=== PATIENT | female | born 1945 | race Asian ===

== ENCOUNTER → 2016-10-17 | Outpatient (CLI) | payer MEDICARE ==
[2016-10-17 10:41] LABS: ALANINE AMINOTRANSFERASE 29 U/L (9-52); ALBUMIN 4.4 g/dL (3.5-5.0); ALKALINE PHOSPHATASE 92 U/L (38-126); ANION GAP 16 (5-19); ASPARTATE AMINO TRANSFERASE 23 U/L (14-36); BILIRUBIN,DIRECT 0.2 mg/dL (0.0-0.4); BILIRUBIN,TOTAL 0.7 mg/dL (0.2-1.3); BLOOD UREA NITROGEN 19 mg/dL (7-20); CALCIUM 9.9 mg/dL (8.4-10.2); CARBON DIOXIDE 26 mmol/L (22-30); CHLORIDE 100 mmol/L (98-107); CHOLESTEROL 224.99 mg/dL (0-200); Direct HDL 51 mg/dL (>40); GLUCOSE 112 mg/dL (75-110); POTASSIUM 3.9 mmol/L (3.6-5.0); SODIUM 141.8 mmol/L (137-145); TOTAL PROTEIN 8.4 g/dL (6.3-8.2); TRIGLYCERIDES 278 mg/dL (<150)
[2016-10-17 10:52] LABS: DIRECT LDL 93 mg/dL (<100)
[2016-10-17 10:53] LABS: VLDL CHOLESTEROL 55.6 mg/dL (10-31)
[2016-10-17 11:08] LABS: THYROID STIMULATING HORMONE 0.9 uIU/mL (0.47-4.68)
== END ==
LOC: OD 09:34
PROVIDERS: ATTEND Internal Medicine
DX: E03.9 Hypothyroidism, unspecified (principal); G47.62 Sleep related leg cramps; R25.2 Cramp and spasm; I10 Essential (primary) hypertension; I25.10 Atherosclerotic heart disease of native coronary artery without angina pectoris; Z79.899 Other long term (current) drug therapy
CPT/HCPCS: 36415; 80053; 80061; 83735; 84439; 84443

== ENCOUNTER 2016-11-03 21:52 | Observation (INO) | payer MEDICARE ==
[2016-11-03 22:45] LABS: ABSOLUTE BASOPHILS # (AUTO) 0.1 10^3/uL (0.0-0.2); ABSOLUTE EOSINOPHILS # (AUTO) 0.4 10^3/uL (0.0-0.6); ABSOLUTE LYMPHOCYTES (AUTO) 1.8 10^3/uL (0.5-4.7); ABSOLUTE MONOCYTES (AUTO) 0.6 10^3/uL (0.1-1.4); ABSOLUTE NEUT (AUTO) 4.8 10^3/uL (1.7-8.2); BASOPHILS % (AUTO) 0.9 % (0-2); EOSINOPHILS % (AUTO) 4.7 % (0-6); HEMATOCRIT 36.4 % (36.0-47.0); HEMOGLOBIN 12.6 g/dL (12.0-15.5); HGB HCT DIFFERENCE 1.4; LYMPHOCYTES % (AUTO) 23.1 % (13-45); MEAN CORPUSCULAR HEMOGLOBIN 30.8 pg (27.0-33.4); MEAN CORPUSCULAR HGB CONC 34.7 g/dL (32.0-36.0); MEAN CORPUSCULAR VOLUME 89 fl (80-97); MONOCYTES % (AUTO) 8.1 % (3-13); RED BLOOD COUNT 4.09 10^6/uL (3.72-5.28); RED CELL DISTRIBUTION WIDTH 13.3 % (11.5-14.0); SEGMENTED NEUTROPHILS % (AUTO) 63.2 % (42-78); WHITE BLOOD COUNT 7.6 10^3/uL (4.0-10.5)
[2016-11-03] MEDS ORDERED: ASPIRIN 81 MG TABLET, CHEWABLE PO ONE (22:53)
--- NOTE | 2016-11-03 22:54 | ER Document Report ---
ED Cardiac - General Chief Complaint: Chest Pain Stated Complaint: CHEST PAIN Time Seen by Provider: 11/03/16 22:33 Mode of Arrival: Ambulatory Information source: Patient TRAVEL OUTSIDE OF THE [place] IN LAST 30 DAYS: No - HPI Patient complains to provider of: Chest pain Was the onset of pain: Sudden Chest pain location: Substernal Quality of pain: Pressure Severity now: Mild Severity at worst: Moderate Pain level currently: 2 Chest pain precipitating factors: At Rest Cardiac risk factors: Hypertension Positive cardiac history: Yes Associated symptoms: Diaphoresis, Nausea/vomiting, Shortness of breath Exacerbated by: Denies Relieved by: Nothing Similar symptoms previously: Yes Recently seen / treated by doctor: No Notes: 71-year-old female with a history of coronary artery disease with stent placement in July 2014, as well as hypertension, presents to the emergency room complaining of chest pressure with shortness of breath and diaphoresis starting around 8 PM, also had episode of vomiting, pain starts in the midsternal area, not take any medication prior to driving herself to the emergency room for evaluation, she denies any sick contacts, no cough, cold, congestion - Related Data Allergies/Adverse Reactions: acetaminophen [From Darvocet-N 100] Allergy (Verified 08/02/15 09:28) albuterol [Albuterol] Allergy (Verified 08/02/15 09:28) amoxicillin trihydrate [From Augmentin] Allergy (Verified 08/02/15 09:28) clarithromycin [From Biaxin] Allergy (Verified 08/02/15 09:28) codeine [Codeine] Allergy (Verified 08/02/15 09:28) diazepam [From Valium] Allergy (Verified 08/02/15 09:28) erythromycin base [Erythromycin Base] Allergy (Verified 08/02/15 09:28) ibuprofen [From Motrin] Allergy (Verified 08/02/15 09:28) Iodinated Contrast Media - Oral and [IV Dye, Iodine Containing] Allergy ( Verified 08/02/15:28) meperidine HCl [From Demerol] Allergy (Verified 08/02/15 09:28) methylprednisolone [Methylprednisolone] Allergy (Verified 08/02/15 09:28) morphine [Morphine] Allergy (Verified 08/02/15 09:28) oxycodone [Oxycodone] Allergy (Verified 08/02/15 09:28) Potassium Clavulanate * [From Augmentin] Allergy (Verified 08/02/15 09:28) propoxyphene napsylate [From Darvocet-N 100] Allergy (Verified 08/02/15 09:28) rofecoxib [From Vioxx] Allergy (Verified 08/02/15 09:28) rosuvastatin calcium [From Crestor] Allergy (Verified 08/02/15 09:28) Shellfish * [Shellfish] Allergy (Verified 08/02/15 09:28) theophylline anhydrous [From Yusef-Dur] Allergy (Verified 08/02/15 09:28) tolterodine tartrate [From Detrol] Allergy (Verified 08/02/15 09:28) valdecoxib [From Bextra] Allergy (Verified 08/02/15 09:28) Past Medical History - General Information source: Patient - Social History Smoking Status: Never Smoker Family History: Reviewed & Not Pertinent, Other Patient has suicidal ideation: No Patient has homicidal ideation: No - Past Medical History Cardiac Medical History: Reports: Hx Coronary Artery Disease, Hx Heart Attack, Hx Hypercholesterolemia, Hx Hypertension Denies: Hx Atrial Fibrillation, Hx Congestive Heart Failure, Hx Peripheral Vascular Disease, Hx Pulmonary Embolism, Hx Heart Murmur Pulmonary Medical History: Reports: Hx Asthma, Hx Sleep Apnea Denies: Hx Bronchitis, Hx COPD, Hx Pneumonia, Hx Respiratory Failure, Hx Tuberculosis Neurological Medical History: Denies: Hx Cerebrovascular Accident, Hx Seizures Renal/ Medical History: Denies: Hx End Stage Renal Disease, Hx Kidney Stones, Hx Ovarian Cysts, Hx Peritoneal Dialysis, Hx Pelvic Inflammatory Disease Malignancy Medical History: Denies: Hx Breast Cancer, Hx Cervical Cancer, Hx Lung Cancer, Hx Ovarian Cancer GI Medical History: Denies: Hx Crohn's Disease, Hx Gastroesophageal Reflux Disease, Hx Hiatal Hernia, Hx Irritable Bowel, Hx Liver Failure, Hx Ulcer Musculoskeltal Medical History: Reports Hx Arthritis, Denies Hx Fibromyalgia, Denies Hx Multiple Sclerosis, Denies Hx Muscular Dystrophy Psychiatric Medical History: Denies: Hx Dementia Traumatic Medical History: Denies: Hx Fractures Past Surgical History: Reports: Hx Appendectomy, Hx Cardiac Surgery - Bypass Sx , Hx Cholecystectomy, Hx Coronary Artery Bypass Graft - 2000, Hx Coronary Stent , Hx Hysterectomy. Denies: Hx Bowel Surgery, Hx Section, Hx Colostomy , Hx Gastric Bypass Surgery, Hx Herniorrhaphy, Hx Mastectomy, Hx Pacemaker, Hx Tonsillectomy, Hx Tubal Ligation - Immunizations Immunizations up to date: Yes Hx Diphtheria, Pertussis, Tetanus Vaccination: No Review of Systems - Review of Systems Constitutional: Diaphoresis EENT: No symptoms reported Cardiovascular: See HPI Respiratory: See HPI Gastrointestinal: See HPI Genitourinary: No symptoms reported Female Genitourinary: No symptoms reported Musculoskeletal: No symptoms reported Skin: No symptoms reported Hematologic/Lymphatic: No symptoms reported Neurological/Psychological: No symptoms reported -: Yes All other systems reviewed and negative Physical Exam - Vital signs Vitals: Pulse Ox 96 11/03/16 21:59 Interpretation: Normal - General General appearance: Appears well, Alert - HEENT Head: Normocephalic, Atraumatic Eyes: Normal Pupils: PERRL - Respiratory Respiratory status: No respiratory distress Chest status: Nontender Breath sounds: Normal Chest palpation: Normal - Cardiovascular Rhythm: Regular Heart sounds: Normal auscultation Murmur: No - Abdominal Inspection: Normal Distension: No distension Bowel sounds: Normal Tenderness: Nontender Organomegaly: No organomegaly - Back Back: Normal, Nontender - Extremities General upper extremity: Normal inspection, Nontender, Normal color, Normal ROM , Normal temperature General lower extremity: Normal inspection, Nontender, Normal color, Normal ROM , Normal temperature. No: Karen's sign - Neurological Neuro grossly intact: Yes Cognition: Normal Orientation: AAOx4 [place] Coma Scale Eye Opening: Spontaneous [place] Coma Scale Verbal: Oriented [place] Coma Scale Motor: Obeys Commands Zahra Coma Scale Total: 15 Speech: Normal Motor strength normal: LUE, RUE, LLE, RLE - Psychological Associated symptoms: Normal affect, Normal mood - Skin Skin Temperature: Warm Skin Moisture: Dry Skin Color: Normal Course - Re-evaluation Re-evalutation: 11/04/16 01:33 Patient with known coronary artery disease, history of stent in July 2014, as well as other risk factors for heart disease including age, hypertension, history of angina, normal evaluation in the emergency room except for mild decrease in her potassium which is being replaced, patient was discussed with the hospitalist who agrees to admit for further evaluation and treatment of chest pain, patient is chest pain-free at present time and stable for admission - Vital Signs Vital signs: Temp Pulse Resp BP Pulse Ox 97.5 F 46 L 16 122/73 96 11/03/16 22:08 11/03/16 22:08 11/04/16 00:10 11/04/16 00:10 11/04/16 00:10 - Laboratory Result Diagrams: 11/03/16 22:30 11/03/16 22:30 Laboratory results interpreted by me: 11/03/16 22:30 Potassium 3.2 L BUN 21 H Glucose 118 H - Diagnostic Test Radiology reviewed: Image reviewed, Reports reviewed - EKG Interpretation by [place] EKG shows normal: Sinus rhythm Rate: Bradycardia - Transfer of Care Care transferred to following provider: Dr. Jain Discharge - Discharge Clinical Impression: Chest pain Qualifiers: Chest pain type: unspecified Qualified Code(s): R07.9 - Chest pain, unspecified Condition: Stable Disposition: ADMITTED OBSERVATION Admitting Provider: Hospitalist Unit Admitted: Telemetry
[2016-11-03] MEDS: NITROGLYCERIN 0.4 MG/TAB 25 TAB/BOTTLE SL PRN ×3 (23:02→23:48)
[2016-11-03 23:03] LABS: ALANINE AMINOTRANSFERASE 36 U/L (9-52); ALBUMIN 4.2 g/dL (3.5-5.0); ALKALINE PHOSPHATASE 83 U/L (38-126); ANION GAP 15 (5-19); ASPARTATE AMINO TRANSFERASE 20 U/L (14-36); BILIRUBIN,DIRECT 0.3 mg/dL (0.0-0.4); BILIRUBIN,TOTAL 0.5 mg/dL (0.2-1.3); BLOOD UREA NITROGEN 21 mg/dL (7-20); CALCIUM 9.8 mg/dL (8.4-10.2); CARBON DIOXIDE 26 mmol/L (22-30); CHLORIDE 101 mmol/L (98-107); CREATINE KINASE 46 U/L (30-135); CREATININE RESULT 0.87 mg/dL (0.52-1.25); GLUCOSE 118 mg/dL (75-110); POTASSIUM 3.2 mmol/L (3.6-5.0); SODIUM 141.7 mmol/L (137-145); TOTAL PROTEIN 7.9 g/dL (6.3-8.2)
[2016-11-03 23:13] LABS: CREATINE KINASE MB 0.45 ng/mL (<4.55); TROPONIN I < 0.012 ng/mL
[2016-11-03] MEDS ORDERED: METOCLOPRAMIDE HCL ORAL SOLN 10 MG/10 ML UDCUP PO ONE (23:30)
[2016-11-03] MEDS ORDERED: MAG HYDROX/AL HYDROX/SIMETH SUSP 30 ML UDCUP PO ONE (23:30)
[2016-11-03] MEDS ORDERED: LIDOCAINE 2% VISCOUS SOLN 20 ML UDCUP PO ONE (23:30)
[2016-11-04] MEDS ORDERED: POTASSIUM CHLORIDE 10 MEQ TABLET.SA PO ONE (00:23)
[2016-11-04] MEDS ORDERED: POTASSI CL 20 MEQ/50 ML RIDER 50 ML IV SCH (00:30)
[2016-11-04] MEDS: POTASSI CL 20 MEQ/50 ML RIDER 50 ML IV SCH ×2 (00:48→02:10)
[2016-11-04] MEDS ORDERED: ACETAMINOPHEN 325 MG TABLET PO PRN (02:26)
[2016-11-04] MEDS ORDERED: MAG HYDROX/AL HYDROX/SIMETH SUSP 30 ML UDCUP PO PRN (02:28)
--- NOTE | 2016-11-04 02:52 | PDOC H&P ---
History of Present Illness Admission Date/PCP: 11/04/16 01:29 PCP Ghanshyam Herman [place], [place] Patient complains of: chest pain History of Present Illness: NOA MCKEE is a 71 year old Citizen [place] female, with underlying coronary artery disease, having undergone coronary arterial bypass graft in 2000, along with stent implant 1, last year, at [facility], by Dr. Herman, who presents to the emergency room for evaluation of above complaint. Patient has been discussed with emergency room physician who evaluated the patient. She describes the onset while lying in bed the evening of the of mild to moderate substernal chest pressure that radiated to both shoulders. Associated nausea and vomiting 3, along with sweating, mild numbness and tingling of her fingertips, and shortness of breath. Complete resolution of pain after 3 sublingual nitroglycerin. Currently resting quietly, chest pain-free. Has had prior such episodes of pain. Somewhat distant history of a pulmonary embolus. No recent long trip with prolonged inactivity, or unusual lower extremity swelling or tenderness. She does have chronic intermittent swelling of her left lower extremity, without recent change. No recent change in medications. Compliant with same. No use of tobacco alcohol or illicit drugs. Laboratory results are listed in [facility]. and are reviewed. X-ray summary results are listed below, with full report(s) reviewed. . EKG reviewed. Social history/personal habits: . Lives alone. 2 sons. Retired. Personal habits as noted above. Allergies/adverse reactions are listed in [facility]. and are reviewed. Home medications initially autopopulated into [facility] may not accurately reflect patient's true medications, dosages, and/or frequencies. component lab tech to reconcile medications. Unfortunately, patient not certain of all her medications/dosages/frequencies. REVIEW OF SYSTEMS: Constitutional: No fever or chills. Eyes: Wears glasses. ENT: No swallowing problems or complaints. No hearing difficulty. Pulmonary: See history and present illness. Cardiovascular: See history and present illness. Gastrointestinal: See history and present illness. Skin: No current complaints, including rashes. Hematologic: Easy bruising. Neurologic: See history and present illness. Musculoskeletal:Joint pain from arthritis. Psychiatric: Denies anxiety or depression. Endocrine: No current complaints, including polyuria. Genitourinary: No current complaints, including dysuria. PHYSICAL EXAMINATION: 5 feet 4 inches tall. 74.4 kg. BMI 28.2 kg/m. Blood pressure 123/69. Pulse 52 and regular. 99% saturation on room air. Respirations are 17 and unlabored. Temperature 97.5. Slightly overweight otherwise well-nourished well-developed Citizen [place] female appearing approximately her stated age. Pleasant awake alert and cooperative. No obvious distress other than perhaps mildly anxious. No agitation. Skin is warm and dry. No grossly obvious evidence of rash in areas of skin examined. No subcutaneous nodules palpated. ENT: Hearing grossly normal to normal conversation. Tongue midline on protrusion pink and slightly tacky. Eyes: No scleral icterus. Pupils equal and reactive to light at 4 mm. [place] conjunctivae. Neck is supple and nontender to gentle active range of motion and palpation. Midline trachea. No palpable thyroid nodule mass enlargement or tenderness. Lymphatic: No palpable cervical or clavicular nodes. Neck and lymphatic exams limited by patient body habitus. Psychiatric: Reasonable insight into acute and chronic medical issues. Oriented to time location and why here. Lungs: Auscultation reveals clear and equal breath sounds bilaterally. No use of accessory respiratory muscles. Cardiovascular: Heart regular rate and rhythm, without gallop murmur or rub. No carotid or abdominal aortic bruits. No ankle or pedal edema. Faintly palpable dorsalis pedis pulses. Abdomen:soft slightly distended nontender with positive bowel sounds. Unable to adequately evaluate abdomen for masses or organomegaly due to distention. Compression of both her upper abdomen and sternum does seem to reproduce her previously noted chest discomfort. Extremities: Feet are warm and dry. No calf tenderness to compression. No grossly obvious visual evidence of calf swelling. Gentle manipulation of lower extremities fails to reveal any obvious evidence of injury or instability to knees hips or ankles. Neurologic: Moves upper extremities grossly normally. Patellar reflexes absent. Absent Babinski. Light touch is intact at feet. Dorsiflexion and plantarflexion of feet 5 / 5 and symmetric. Past Medical History Cardiac Medical History: Reports: Coronary Artery Disease, Myocardial Infarction , Hypertension, Pulmonary Embolism Denies: Atrial Fibrillation, Congestive Heart Failure, Hyperlipidema, Peripheral Vascular Disease, Heart Murmur Pulmonary Medical History: Reports: Asthma, Sleep Apnea - Does not wear CPAP. Denies: Bronchitis, Chronic Obstructive Pulmonary Disease (COPD), Pneumonia, Respiratory Failure, Tuberculosis EENT Medical History: Reports: Eyes - Glasses Denies: Ears, Throat Neurological Medical History: Reports: Other - Previous TIA Denies: Hemorrhagic CVA, Ischemic CVA, Seizures Endocrine Medical History: Reports: Hypothyroidism Denies: Diabetes Mellitus Type 1, Diabetes Mellitus Type 2, Hyperthyroidism Renal/ Medical History: Reports: Other - Occasional urinary tract infection. Denies: End Stage Renal Disease Malignancy Medical History: Denies: Breast Cancer, Cervical Cancer, Lung Cancer, Ovarian Cancer GI Medical History: Reports: Gastroesophageal Reflux Disease Denies: Cirrhosis, Crohn's Disease, Hepatitis, Hiatal Hernia, Peptic Ulcer Disease Musculoskeltal Medical History: Reports: Arthritis Denies: Fibromyalgia Skin Medical History: Reports: None Psychiatric Medical History: Denies: Alcohol Dependency, Dementia, Depression, General Anxiety Disorder, Substance Abuse, Tobacco Dependency Hematology: Reports: Other - Easy bruising Infectious Medical History: Denies: Clostridium Difficile, Hepatitis B, Hepatitis C, Methicillin- Resistant Staph Aureus Past Surgical History Past Surgical History: Reports: Appendectomy, Cholecystectomy, Coronary Artery Bypass Graft - 2000, Coronary Stent - 2015, [facility], Dr. Herman, Hysterectomy, Other - Segmental colectomy for colovaginal fistula; benign disease. Social History Information Source: Patient, Emergency Med Personnel, [facility] Records Lives with: Alone Smoking Status: Never Smoker Frequency of Alcohol Use: None Hx Recreational Drug Use: No Drugs: None Hx Prescription Drug Abuse: No - Advance Directive Resuscitation Status: Full Code Surrogate healthcare decision maker:: Her 2 sons Family History Family History: Reviewed & Not Pertinent, Other Parental Family History Reviewed: Yes - Father murdered. Mother of lung problems. Children Family History Reviewed: Yes Sibling(s) Family History Reviewed.: Yes - Diabetic Medication/Allergy Home Medications: Levothyroxine Sodium [Synthroid 0.075 mg Tablet] 0.075 mg PO DAILY 03/24/12 Potassium Chloride [Klor-Con 10 Meq Tablet.sa] 10 meq PO ASDIR PRN 03/24/12 Amlodipine/Valsartan/Hcthiazid [Exforge Hct 10-320-25 mg Tab] 0.5 tab PO DAILY 08/02/15 Aspirin 1 tab PO DAILY 11/04/16 Clopidogrel Bisulfate [Plavix] 1 tab PO DAILY 11/04/16 Diphenhydramine HCl [Benadryl] 25 mg PO Q6 05/21/17 Docusate Sodium [Stool Softener] 1 tab PO DAILY 11/04/16 Allergies/Adverse Reactions: albuterol [Albuterol] Allergy (Verified 08/02/15 09:28) amoxicillin trihydrate [From Augmentin] Allergy (Verified 08/02/15:28) clarithromycin [From Biaxin] Allergy (Verified 08/02/15 09:28) codeine [Codeine] Allergy (Verified 08/02/15 09:28) diazepam [From Valium] Allergy (Verified 08/02/15:28) erythromycin base [Erythromycin Base] Allergy (Verified 08/02/15:) ibuprofen [From Motrin] Allergy (Verified 08/02/15:) Iodinated Contrast Media - Oral and [IV Dye, Iodine Containing] Allergy ( Verified 08/02/15:) meperidine HCl [From Demerol] Allergy (Verified 08/02/15:) methylprednisolone [Methylprednisolone] Allergy (Verified 08/02/15:28) morphine [Morphine] Allergy (Verified 08/02/15:28) oxycodone [Oxycodone] Allergy (Verified 08/02/15:) Potassium Clavulanate * [From Augmentin] Allergy (Verified 08/02/15:28) propoxyphene napsylate [From Darvocet-N 100] Allergy (Verified 08/02/15 09:28) rofecoxib [From Vioxx] Allergy (Verified 08/02/15 09:28) rosuvastatin calcium [From Crestor] Allergy (Verified 08/02/15 09:28) Shellfish * [Shellfish] Allergy (Verified 08/02/15 09:28) theophylline anhydrous [From Yusef-Dur] Allergy (Verified 08/02/15:28) tolterodine tartrate [From Detrol] Allergy (Verified 08/02/15 09:28) valdecoxib [From Bextra] Allergy (Verified 08/02/15 09:28) Physical Exam Vital Signs: Temp Pulse Resp BP Pulse Ox 97.5 F 46 L 15 123/69 96 11/03/16 22:08 11/03/16 22:08 11/04/16 01:30 11/04/16 01:30 11/04/16 01:30 Results Impressions: Chest X-Ray 11/03/16 21:59 IMPRESSION: NO ACUTE RADIOGRAPHIC FINDING IN THE CHEST. Assessment & Plan - Diagnosis (1) Hypokalemia Is this a current diagnosis for this admission?: YesPlan: Has received potassium supplements. Follow-up chemistry. (2) Precordial chest pain Is this a current diagnosis for this admission?: YesPlan: Likely musculoskeletal in origin, but given her known underlying coronary artery disease Patient will be placed in observation bed under chest pain protocol. Patient understands to notify staff should chest pain recur. Serial troponin . Repeat EKG. lipid panel. I have strongly encouraged patient not to get out of bed without notifying staff , to avoid a fall with injury. Knee high SCDs for DVT prophylaxis, along with subcu Lovenox. Impression and plans were discussed with patient, who concurs . Time spent in evaluation and management of patient: 65 minutes. (3) History of pulmonary embolism Is this a current diagnosis for this admission?: YesPlan: D-dimer (4) Stented coronary artery Is this a current diagnosis for this admission?: Yes (5) HTN (hypertension) Qualifiers: Hypertension type: essential hypertension Qualified Code(s): I10 - Essential (primary) hypertension Is this a current diagnosis for this admission?: YesPlan: Resume home medications as appropriate once these have been determined and reviewed. (6) Hypothyroid Qualifiers: Hypothyroidism type: unspecified Qualified Code(s): E03.9 - Hypothyroidism, unspecified Is this a current diagnosis for this admission?: YesPlan: TSH. Resume home medications as appropriate once these have been determined and reviewed.
[2016-11-04 05:00] LABS: CHOLESTEROL 190.18 mg/dL (0-200); Direct HDL 49 mg/dL (>40); TRIGLYCERIDES 244 mg/dL (<150)
[2016-11-04 05:11] LABS: DIRECT LDL 83 mg/dL (<100)
[2016-11-04 05:14] LABS: VLDL CHOLESTEROL 48.8 mg/dL (10-31)
[2016-11-04] MEDS ORDERED: DOCUSATE SODIUM 100 MG CAPSULE PO SCH (10:00)
[2016-11-04] MEDS ORDERED: LEVOTHYROXINE SODIUM 0.075 MG TABLET PO SCH (10:00)
[2016-11-04] MEDS ORDERED: ENOXAPARIN SODIUM INJ 40 MG/0.4 ML DISP.SYRIN SUBCUT SCH (10:00)
[2016-11-04 10:09] VITALS: BP 131/61
[2016-11-04 11:07] LABS: ANION GAP 12 (5-19); BLOOD UREA NITROGEN 17 mg/dL (7-20); CALCIUM 9.5 mg/dL (8.4-10.2); CARBON DIOXIDE 28 mmol/L (22-30); CHLORIDE 101 mmol/L (98-107); GLUCOSE 113 mg/dL (75-110); SODIUM 140.5 mmol/L (137-145)
[2016-11-04] MEDS ORDERED: CLOPIDOGREL BISULFATE 75 MG TABLET PO ONE (12:00)
[2016-11-04] MEDS ORDERED: ASPIRIN 81 MG TABLET, CHEWABLE PO ONE (12:00)
--- NOTE | 2016-11-04 14:11 | PDOC DISCHARGE SUMMARY ---
General - Admit/Disc Date/PCP Admission Date/Primary Care Provider: 11/04/16 02:28 Discharge Date: 11/04/16 - Discharge Diagnosis (1) Chest pain Is this a current diagnosis for this admission?: YesSummary: Ruled out for acute coronary syndrome, most likely GI in origin. Will follow up with Dr Hayward. (2) History of pulmonary embolism Is this a current diagnosis for this admission?: YesSummary: VQ scan is negative (3) Stented coronary artery Is this a current diagnosis for this admission?: YesSummary: Continue plavix and aspirin. Fasting lipids were unremarkable (4) HTN (hypertension) Is this a current diagnosis for this admission?: YesSummary: Patient is normotensive at the present time (5) Hypokalemia Is this a current diagnosis for this admission?: YesSummary: Repleted - Additional Information Resuscitation Status: Full Code Discharge Activity: Activity As Tolerated Home Medications: Levothyroxine Sodium [Synthroid 0.075 mg Tablet] 0.075 mg PO DAILY 03/24/12 Potassium Chloride [Klor-Con 10 Meq Tablet.sa] 10 meq PO ASDIR PRN 03/24/12 Amlodipine/Valsartan/Hcthiazid [Exforge Hct 10-320-25 mg Tab] 0.5 tab PO DAILY 08/02/15 Acetaminophen [Tylenol 325 mg Tablet] 650 mg PO Q4HP PRN tablet 11/04/16 Aspirin 1 tab PO DAILY 11/04/16 Clopidogrel Bisulfate [Plavix] 1 tab PO DAILY 11/04/16 Diphenhydramine HCl [Benadryl] 25 mg PO Q6 11/04/16 Docusate Sodium [Stool Softener] 1 tab PO DAILY 11/04/16 Nitroglycerin [Nitrostat] 0.4 mg SL Q5MP PRN 11/04/16 History of Present Illness Patient complains of: Midsternal chest pain and nausea and vomiting History of Present Illness: NOA MCKEE is a 71 year old [place] female, with underlying coronary artery disease, having undergone coronary arterial bypass graft in 2000, along with stent implant 1, last year, at [facility], by Dr. Herman, who presents to the emergency room for evaluation of above complaint. Patient has been discussed with emergency room physician who evaluated the patient. She describes the onset while lying in bed the evening of the of mild to moderate substernal chest pressure that radiated to both shoulders. Associated nausea and vomiting 3, along with sweating, mild numbness and tingling of her fingertips, and shortness of breath. Complete resolution of pain after 3 sublingual nitroglycerin. Currently resting quietly, chest pain-free. Has had prior such episodes of pain. Somewhat distant history of a pulmonary embolus. No recent long trip with prolonged inactivity, or unusual lower extremity swelling or tenderness. She does have chronic intermittent swelling of her left lower extremity, without recent change. Hospital Course Hospital Course: Patient was admitted to telemetry unit. She had serial troponins done overnight. They all remained negative. She also underwent V/Q scan, which was reported as negative as well. She has had no further episodes of chest pain, or nausea and vomiting. Pain is more consistent with GI origin. She would like to go home. She will follow-up with Dr. Hayward being her primary care provider should pain recur. Physical Exam Vital Signs: Temp Pulse Resp BP Pulse Ox 97.8 F 56 L 20 131/61 H 99 11/04/16 12:16 11/04/16 12:16 11/04/16 12:16 11/04/16 12:16 11/04/16 12:16 Intake & Output 11/03/16 11/04/16 11/05/16 06:59 06:59 06:59 Weight 75.9 kg General appearance: PRESENT: no acute distress, well-developed, well-nourished Head exam: PRESENT: atraumatic, normocephalic Eye exam: PRESENT: conjunctiva pink, EOMI, PERRLA. ABSENT: scleral icterus Ear exam: PRESENT: normal external ear exam Mouth exam: PRESENT: moist, tongue midline Neck exam: ABSENT: carotid bruit, JVD, lymphadenopathy, thyromegaly Respiratory exam: PRESENT: clear to auscultation jessica. ABSENT: rales, rhonchi, wheezes Cardiovascular exam: PRESENT: RRR. ABSENT: diastolic murmur, rubs, systolic murmur Pulses: PRESENT: normal dorsalis pedis pul Vascular exam: PRESENT: normal capillary refill GI/Abdominal exam: PRESENT: normal bowel sounds, soft. ABSENT: distended, guarding, mass, organolmegaly, rebound, tenderness Rectal exam: PRESENT: deferred Extremities exam: PRESENT: full ROM. ABSENT: calf tenderness, clubbing, pedal edema Neurological exam: PRESENT: alert, awake, oriented to person, oriented to place , oriented to time, oriented to situation, CN II-XII grossly intact. ABSENT: motor sensory deficit Psychiatric exam: PRESENT: appropriate affect, normal mood. ABSENT: homicidal ideation, suicidal ideation Skin exam: PRESENT: dry, intact, warm. ABSENT: cyanosis, rash Results Laboratory Results: 11/04/16 10:30 11/04/16 11/04/16 04:26 10:30 Sodium 140.5 Potassium 4.0 Chloride 101 Carbon Dioxide 28 Anion Gap 12 BUN 17 Creatinine 0.80 Est GFR ( Amer) > 60 Est GFR (Non-Af Amer) > 60 Glucose 113 H Calcium 9.5 Triglycerides 244 H Cholesterol 190.18 LDL Cholesterol Direct 83 VLDL Cholesterol 48.8 H HDL Cholesterol 49 11/04/16 11/04/16 04:26 10:30 Troponin I < 0.012 < 0.012 Impressions: Chest X-Ray 11/03/16 21:59 IMPRESSION: NO ACUTE RADIOGRAPHIC FINDING IN THE CHEST. Lung Scan-VQ NM 11/04/16 02:59 IMPRESSION: NORMAL VENTILATION-PERFUSION LUNG SCAN. Qualifiers PATEINT BEING DISCHARGED WITH ANY OF THE FOLLOWING DIAGNOSIS?: No Plan Discharge Plan: Home with family Time Spent: Less than 30 Minutes
--- NOTE | 2016-11-04 17:11 | EKG REPORT ---
SEVERITY:- BORDERLINE ECG - SINUS BRADYCARDIA BORDERLINE T ABNORMALITIES, ANT-LAT LEADS : Confirmed by: Adeline Calvo MD 04-Nov-2016 17:10:20
--- NOTE | 2016-11-04 17:11 | EKG REPORT ---
SEVERITY:- NORMAL ECG - SINUS RHYTHM : Confirmed by: Adeline Calvo MD 04-Nov-2016 17:10:24
[2016-11-05] MEDS ORDERED: CLOPIDOGREL BISULFATE 75 MG TABLET PO SCH (10:00)
[2016-11-05] MEDS ORDERED: ASPIRIN 81 MG TABLET, CHEWABLE PO SCH (10:00)
== END 2016-11-04 13:50 | disposition home or self-care (01) ==
LOC: ER 21:52 → UNDOADMOB 11-04 01:29 → EH 11-04 01:29 → 4N 11-04 02:28 → EH 11-04 02:50 → 4N 11-04 02:50
PROVIDERS: ADMIT Family Medicine; ATTEND Family Medicine
DX: R07.89 Other chest pain (principal); Z86.711 Personal history of pulmonary embolism; Z95.5 Presence of coronary angioplasty implant and graft; I10 Essential (primary) hypertension; E87.6 Hypokalemia; Z79.899 Other long term (current) drug therapy; I25.10 Atherosclerotic heart disease of native coronary artery without angina pectoris; R11.2 Nausea with vomiting, unspecified; R20.0 Anesthesia of skin; M79.89 Other specified soft tissue disorders; E03.9 Hypothyroidism, unspecified; M19.90 Unspecified osteoarthritis, unspecified site; I25.2 Old myocardial infarction; Z95.1 Presence of aortocoronary bypass graft; Z79.02 Long term (current) use of antithrombotics/antiplatelets; Z90.49 Acquired absence of other specified parts of digestive tract; Z90.710 Acquired absence of both cervix and uterus; Z83.6 Family history of other diseases of the respiratory system
CPT/HCPCS: 93005 ×2; 99285; 96365; 96366; 36415 ×2; 82553; 82550; 84443; 85025; 80048; 80053; 84484 ×2; 85379; 80061; 83880; 71010; 78582; 93010 ×2; G0378 ×2; A9540; A9567; A9270 ×7; J3490 ×2; J1650; J3480; Q9969

== ENCOUNTER → 2016-12-20 | Outpatient (CLI) | payer MEDICARE ==
[2016-12-20 13:44] LABS: ABSOLUTE BASOPHILS # (AUTO) 0.1 10^3/uL (0.0-0.2); ABSOLUTE EOSINOPHILS # (AUTO) 0.6 10^3/uL (0.0-0.6); ABSOLUTE LYMPHOCYTES (AUTO) 1.7 10^3/uL (0.5-4.7); ABSOLUTE MONOCYTES (AUTO) 0.6 10^3/uL (0.1-1.4); ABSOLUTE NEUT (AUTO) 2.8 10^3/uL (1.7-8.2); BASOPHILS % (AUTO) 1.2 % (0-2); EOSINOPHILS % (AUTO) 10.9 % (0-6); HEMATOCRIT 35.7 % (36.0-47.0); HGB HCT DIFFERENCE 0.3; LYMPHOCYTES % (AUTO) 28.5 % (13-45); MEAN CORPUSCULAR HEMOGLOBIN 30.3 pg (27.0-33.4); MEAN CORPUSCULAR HGB CONC 33.6 g/dL (32.0-36.0); MEAN CORPUSCULAR VOLUME 90 fl (80-97); MONOCYTES % (AUTO) 10.9 % (3-13); RED BLOOD COUNT 3.95 10^6/uL (3.72-5.28); RED CELL DISTRIBUTION WIDTH 13.3 % (11.5-14.0); SEGMENTED NEUTROPHILS % (AUTO) 48.5 % (42-78); WHITE BLOOD COUNT 5.8 10^3/uL (4.0-10.5)
[2016-12-20 14:01] LABS: ALANINE AMINOTRANSFERASE 35 U/L (9-52); ALBUMIN 4.3 g/dL (3.5-5.0); ALKALINE PHOSPHATASE 97 U/L (38-126); ANION GAP 13 (5-19); ASPARTATE AMINO TRANSFERASE 24 U/L (14-36); BILIRUBIN,DIRECT 0.3 mg/dL (0.0-0.4); BILIRUBIN,TOTAL 0.7 mg/dL (0.2-1.3); BLOOD UREA NITROGEN 17 mg/dL (7-20); CALCIUM 9.6 mg/dL (8.4-10.2); CARBON DIOXIDE 24 mmol/L (22-30); CHLORIDE 101 mmol/L (98-107); CREATININE RESULT 0.92 mg/dL (0.52-1.25); GLUCOSE 95 mg/dL (75-110); POTASSIUM 3.7 mmol/L (3.6-5.0); SODIUM 137.5 mmol/L (137-145); TOTAL PROTEIN 8.2 g/dL (6.3-8.2)
== END ==
LOC: OD 12:42
PROVIDERS: ATTEND Internal Medicine
DX: R53.83 Other fatigue (principal); I25.10 Atherosclerotic heart disease of native coronary artery without angina pectoris; Z79.899 Other long term (current) drug therapy
CPT/HCPCS: 36415; 80053; 85025

== ENCOUNTER → 2018-04-29 | Outpatient (CLI) | payer MEDICARE ==
[2018-04-29 10:47] LABS: ALANINE AMINOTRANSFERASE 18 U/L (9-52); ALBUMIN 4.1 g/dL (3.5-5.0); ALKALINE PHOSPHATASE 77 U/L (38-126); ANION GAP 13 (5-19); ASPARTATE AMINO TRANSFERASE 23 U/L (14-36); BILIRUBIN,DIRECT 0.3 mg/dL (0.0-0.4); BILIRUBIN,TOTAL 0.7 mg/dL (0.2-1.3); BLOOD UREA NITROGEN 21 mg/dL (7-20); CALCIUM 9.7 mg/dL (8.4-10.2); CARBON DIOXIDE 29 mmol/L (22-30); CHLORIDE 100 mmol/L (98-107); GLUCOSE 106 mg/dL (75-110); POTASSIUM 3.9 mmol/L (3.6-5.0); SODIUM 141.7 mmol/L (137-145); TOTAL PROTEIN 8.1 g/dL (6.3-8.2)
== END ==
LOC: OD 08:51
PROVIDERS: ATTEND Internal Medicine
DX: E78.00 Pure hypercholesterolemia, unspecified (principal); I10 Essential (primary) hypertension; R25.2 Cramp and spasm
CPT/HCPCS: 36415; 80053; 83735

== ENCOUNTER 2019-04-03 21:30 | Emergency (ER) | payer MEDICARE ==
--- NOTE | 2019-04-03 21:54 | ER Document Report ---
ED Medical Screen (RME) - General Chief Complaint: Allergic Reaction Stated Complaint: CHEST PAIN Time Seen by Provider: 04/03/19 21:52 Primary Care Provider: REJI LOOMIS MD [Primary Care Provider] - Follow up as needed Mode of Arrival: Wheelchair Information source: Patient Notes: 73-year-old female presented to ED for complaint of chest pain facial swelling b urning all over after she got stung by a bee on the right index finger about 8:00 tonight. She states she still has chest tightness in her face and hands and feet or burning. She states now she started to get a little short of breath and tightness in her throat. She states she has never had the symptoms from a bee sting before. Patient is alert oriented respirations regular nonlabored speaking in full sentences. I have greeted and performed a rapid initial assessment of this patient. A comprehensive ED assessment and evaluation of the patient, analysis of test results and completion of medical decision making process will be conducted by an additional ED providers. TRAVEL OUTSIDE OF THE [place] IN LAST 30 DAYS: No - Related Data Allergies/Adverse Reactions: albuterol [Albuterol] Allergy (Verified 08/02/15 09:28) amoxicillin trihydrate [From Augmentin] Allergy (Verified 08/02/15 09:28) clarithromycin [From Biaxin] Allergy (Verified 08/02/15:28) codeine [Codeine] Allergy (Verified 08/02/15 09:28) diazepam [From Valium] Allergy (Verified 08/02/15 09:28) erythromycin base [Erythromycin Base] Allergy (Verified 08/02/15 09:28) ibuprofen [From Motrin] Allergy (Verified 08/02/15 09:28) Iodinated Contrast Media [IV Dye, Iodine Containing] Allergy (Verified 08/02/15 09:28) meperidine HCl [From Demerol] Allergy (Verified 08/02/15 09:28) methylprednisolone [Methylprednisolone] Allergy (Verified 08/02/15:28) morphine [Morphine] Allergy (Verified 08/02/15 09:28) oxycodone [Oxycodone] Allergy (Verified 08/02/15 09:28) Potassium Clavulanate * [From Augmentin] Allergy (Verified 08/02/15 09:28) propoxyphene napsylate [From Darvocet-N 100] Allergy (Verified 08/02/15 09:28) rofecoxib [From Vioxx] Allergy (Verified 08/02/15 09:28) rosuvastatin calcium [From Crestor] Allergy (Verified 08/02/15 09:28) Shellfish * [Shellfish] Allergy (Verified 08/02/15 09:28) theophylline anhydrous [From Yusef-Dur] Allergy (Verified 08/02/15 09:28) tolterodine tartrate [From Detrol] Allergy (Verified 08/02/15 09:28) valdecoxib [From Bextra] Allergy (Verified 08/02/15 09:28) Past Medical History - Past Medical History Cardiac Medical History: Reports: Hx Coronary Artery Disease, Hx Heart Attack, Hx Hypertension, Hx Pulmonary Embolism Denies: Hx Atrial Fibrillation, Hx Congestive Heart Failure, Hx Hypercholesterolemia, Hx Peripheral Vascular Disease, Hx Heart Murmur Pulmonary Medical History: Reports: Hx Asthma, Hx Sleep Apnea - Does not wear CPAP. Denies: Hx Bronchitis, Hx COPD, Hx Pneumonia, Hx Respiratory Failure, Hx Tuberculosis Neurological Medical History: Denies: Hx Cerebrovascular Accident, Hx Seizures, Hx Parkinson's Disease Endocrine Medical History: Reports: Hx Hypothyroidism. Denies: Hx Diabetes Mellitus Type 1, Hx Diabetes Mellitus Type 2, Hx Hyperthyroidism Renal/ Medical History: Denies: Hx End Stage Renal Disease, Hx Kidney Stones, Hx Ovarian Cysts, Hx Peritoneal Dialysis, Hx Pelvic Inflammatory Disease Malignancy Medical History: Denies: Hx Breast Cancer, Hx Cervical Cancer, Hx Lung Cancer, Hx Ovarian Cancer GI Medical History: Reports: Hx Gastroesophageal Reflux Disease. Denies: Hx Cirrhosis, Hx Crohn's Disease, Hx Hepatitis, Hx Hiatal Hernia, Hx Irritable Bowel, Hx Liver Failure, Hx Pancreatitis, Hx Ulcer Musculoskeltal Medical History: Reports Hx Arthritis, Denies Hx Fibromyalgia, Denies Hx Multiple Sclerosis, Denies Hx Muscular Dystrophy Psychiatric Medical History: Denies: Hx Dementia, Hx Depression Traumatic Medical History: Denies: Hx Fractures Infectious Medical History: Denies: Hx C-Diff, Hx Hepatitis, Hx MRSA Past Surgical History: Reports: Hx Appendectomy, Hx Cardiac Surgery - Bypass Sx, Hx Cholecystectomy, Hx Coronary Artery Bypass Graft - 2000, Hx Coronary Stent - 2015, [facility], Dr. Herman, Hx Hysterectomy, Other - Segmental colectomy for colovaginal fistula; benign disease.. Denies: Hx Bowel Surgery, Hx Section, Hx Colostomy, Hx Gastric Bypass Surgery, Hx Herniorrhaphy, Hx Mastectomy, Hx Pacemaker, Hx Tonsillectomy, Hx Tubal Ligation - Immunizations Immunizations up to date: Yes Hx Diphtheria, Pertussis, Tetanus Vaccination: No Doctor's Discharge - Discharge Referrals: REJI LOOMIS MD [Primary Care Provider] - Follow up as needed
[2019-04-03] MEDS ORDERED: DIPHENHYDRAMINE HCL 50 MG/ML VIAL IV ONE (21:55)
[2019-04-03] MEDS ORDERED: FAMOTIDINE INJ/PF 20 MG/2 ML SDV IV ONE (21:56)
[2019-04-03] MEDS ORDERED: EPINEPHRINE INJ/PF 1 MG/1 ML AMPULE IM ONE (21:57)
--- NOTE | 2019-04-03 22:35 | ER Document Report ---
ED Allergic Reaction - General Chief Complaint: Allergic Reaction Stated Complaint: CHEST PAIN Time Seen by Provider: 04/03/19 21:52 Primary Care Provider: REJI LOOMIS MD [Primary Care Provider] - Follow up as needed Mode of Arrival: Wheelchair TRAVEL OUTSIDE OF THE [place] IN LAST 30 DAYS: No - HPI Notes: This is a 73-year-old female with a history of allergy to bee stings, presenting complaining of shortness of breath after being stung just prior to arrival on her right index finger by a bee. Patient states her pain levels 4 out of 5. Patient's initial vital signs: 97.6 Fahrenheit, heart rate 68, respirations 19, pulse ox 96% on room air, blood pressure 150/90. In addition to feeling short of breath, patient states her chest also feels funny. There are no alleviating or exacerbating factors per the patient. Patient states she is allergic to steroids, stating that they "make my heart feel funny." - Related Data Allergies/Adverse Reactions: albuterol [Albuterol] Allergy (Verified 08/02/15 09:28) amoxicillin trihydrate [From Augmentin] Allergy (Verified 08/02/15:28) clarithromycin [From Biaxin] Allergy (Verified 08/02/15:) codeine [Codeine] Allergy (Verified 08/02/15:) diazepam [From Valium] Allergy (Verified 08/02/15:28) erythromycin base [Erythromycin Base] Allergy (Verified 08/02/15:) ibuprofen [From Motrin] Allergy (Verified 08/02/15:28) Iodinated Contrast Media [IV Dye, Iodine Containing] Allergy (Verified 08/02/15:28) meperidine HCl [From Demerol] Allergy (Verified 08/02/15:) methylprednisolone [Methylprednisolone] Allergy (Verified 08/02/15:) morphine [Morphine] Allergy (Verified 08/02/15:) oxycodone [Oxycodone] Allergy (Verified 08/02/15:28) Potassium Clavulanate * [From Augmentin] Allergy (Verified 08/02/15 09:28) propoxyphene napsylate [From Darvocet-N 100] Allergy (Verified 08/02/15 09:28) rofecoxib [From Vioxx] Allergy (Verified 08/02/15 09:28) rosuvastatin calcium [From Crestor] Allergy (Verified 08/02/15 09:28) Shellfish * [Shellfish] Allergy (Verified 08/02/15 09:28) theophylline anhydrous [From Yusef-Dur] Allergy (Verified 08/02/15 09:28) tolterodine tartrate [From Detrol] Allergy (Verified 08/02/15 09:28) valdecoxib [From Bextra] Allergy (Verified 08/02/15 09:28) Past Medical History - General Information source: Patient - Social History Smoking Status: Never Smoker Family History: Reviewed & Not Pertinent, Other Patient has suicidal ideation: No Patient has homicidal ideation: No - Past Medical History Cardiac Medical History: Reports: Hx Coronary Artery Disease, Hx Heart Attack, Hx Hypertension, Hx Pulmonary Embolism Denies: Hx Atrial Fibrillation, Hx Congestive Heart Failure, Hx Hypercholesterolemia, Hx Peripheral Vascular Disease, Hx Heart Murmur Pulmonary Medical History: Reports: Hx Asthma, Hx Sleep Apnea - Does not wear CPAP. Denies: Hx Bronchitis, Hx COPD, Hx Pneumonia, Hx Respiratory Failure, Hx Tuberculosis Neurological Medical History: Denies: Hx Cerebrovascular Accident, Hx Seizures, Hx Parkinson's Disease Endocrine Medical History: Reports: Hx Hypothyroidism. Denies: Hx Diabetes Mellitus Type 1, Hx Diabetes Mellitus Type 2, Hx Hyperthyroidism Renal/ Medical History: Denies: Hx End Stage Renal Disease, Hx Kidney Stones, Hx Ovarian Cysts, Hx Peritoneal Dialysis, Hx Pelvic Inflammatory Disease Malignancy Medical History: Denies: Hx Breast Cancer, Hx Cervical Cancer, Hx Lung Cancer, Hx Ovarian Cancer GI Medical History: Reports: Hx Gastroesophageal Reflux Disease. Denies: Hx Cirrhosis, Hx Crohn's Disease, Hx Hepatitis, Hx Hiatal Hernia, Hx Irritable Bowel, Hx Liver Failure, Hx Pancreatitis, Hx Ulcer Musculoskeletal Medical History: Reports Hx Arthritis, Denies Hx Fibromyalgia, Denies Hx Multiple Sclerosis, Denies Hx Muscular Dystrophy Psychiatric Medical History: Denies: Hx Dementia, Hx Depression Traumatic Medical History: Denies: Hx Fractures Infectious Medical History: Denies: Hx C-Diff, Hx Hepatitis, Hx MRSA Past Surgical History: Reports: Hx Appendectomy, Hx Cardiac Surgery - Bypass Sx, Hx Cholecystectomy, Hx Coronary Artery Bypass Graft - 2000, Hx Coronary Stent - 2015, [facility], Dr. Herman, Hx Hysterectomy, Other - Segmental colectomy for colovaginal fistula; benign disease.. Denies: Hx Bowel Surgery, Hx Section, Hx Colostomy, Hx Gastric Bypass Surgery, Hx Herniorrhaphy, Hx Mastectomy, Hx Pacemaker, Hx Tonsillectomy, Hx Tubal Ligation - Immunizations Immunizations up to date: Yes Hx Diphtheria, Pertussis, Tetanus Vaccination: No Physical Exam - Vital signs Vitals: Temp Pulse Resp BP Pulse Ox 97.6 F 68 19 150/90 H 96 04/03/19 21:56 04/03/19 21:56 04/03/19 21:56 04/03/19 21:56 04/03/19 21:56 Interpretation: Normal - General General appearance: Appears well, Alert - HEENT Head: Normocephalic, Atraumatic Eyes: Normal Pupils: PERRL - Respiratory Respiratory status: No respiratory distress Chest status: Nontender Breath sounds: Normal Chest palpation: Normal - Cardiovascular Rhythm: Regular Heart sounds: Normal auscultation Murmur: No - Abdominal Inspection: Normal Distension: No distension Bowel sounds: Normal Tenderness: Nontender Organomegaly: No organomegaly - Back Back: Normal, Nontender - Extremities General upper extremity: Normal inspection, Nontender, Normal color, Normal ROM, Normal temperature General lower extremity: Normal inspection, Nontender, Normal color, Normal ROM, Normal temperature, Normal weight bearing. No: Karen's sign - Neurological Neuro grossly intact: Yes Cognition: Normal Orientation: AAOx4 [place] Coma Scale Eye Opening: Spontaneous Zahra Coma Scale Verbal: Oriented Zahra Coma Scale Motor: Obeys Commands Zahra Coma Scale Total: 15 Speech: Normal Motor strength normal: LUE, RUE, LLE, RLE Sensory: Normal - Psychological Associated symptoms: Normal affect, Normal mood - Skin Skin Temperature: Warm Skin Moisture: Dry Skin Color: Normal Course - Re-evaluation Re-evalutation: 04/04/19 00:51 Patient is resting comfortably and is in no acute distress at this time. Patient requested that she be discharged with a EpiPen from the ED as opposed to being given a prescription. Unfortunately we are unable to dispense EpiPen's and the patient will be written a prescription. - Vital Signs Vital signs: Temp Pulse Resp BP Pulse Ox 97.6 F 68 16 150/90 H 98 04/03/19 21:56 04/03/19 21:56 04/03/19 23:00 04/03/19 21:56 04/03/19 23:00 - EKG Interpretation by Me Additional EKG results interpreted by me: 04/04/19 00:52 EKG performed at 2219 hrs. on 04/03/2019 was interpreted by this MD. Findings: Normal sinus rhythm, normal axis, heart rate 66, narrow QRS complexes, nonspecific ST segments. Discharge - Discharge Clinical Impression: Acute allergic reaction Disposition: HOME, SELF-CARE Instructions: Acute Allergic Reaction ([facility]) Additional Instructions: Return to the Emergency Department without delay if any worse. Prescriptions: Epinephrine [Epipen 2-Rivera] 0.3 mg IJ ONCE PRN #1 auto.injct PRN Reason: allergic reaction Referrals: REJI LOOMIS MD [Primary Care Provider] - Follow up as needed
[2019-04-04 03:09] VITALS: BP 113/58
--- NOTE | 2019-04-05 00:25 | EKG REPORT ---
SEVERITY:- BORDERLINE ECG - SINUS RHYTHM BORDERLINE T ABNORMALITIES, DIFFUSE LEADS : Confirmed by: Yaya Morrell 05-Apr-2019 00:24:08
--- NOTE | 2019-04-05 00:25 | EKG REPORT ---
SEVERITY:- BORDERLINE ECG - SINUS RHYTHM BORDERLINE T ABNORMALITIES, ANT-LAT LEADS BORDERLINE PROLONGED QT INTERVAL : Confirmed by: Yaya Morrell 05-Apr-2019 00:24:03
== END 2019-04-04 02:55 | disposition home or self-care (01) ==
LOC: ER 21:30
DX: T63.441A Toxic effect of venom of bees, accidental (unintentional), initial encounter (principal); R06.02 Shortness of breath; J45.909 Unspecified asthma, uncomplicated; I25.10 Atherosclerotic heart disease of native coronary artery without angina pectoris; I10 Essential (primary) hypertension; Z95.1 Presence of aortocoronary bypass graft; Z95.5 Presence of coronary angioplasty implant and graft; Z88.8 Allergy status to other drugs, medicaments and biological substances; Z88.0 Allergy status to penicillin; Z88.1 Allergy status to other antibiotic agents; Z88.5 Allergy status to narcotic agent; Z91.041 Radiographic dye allergy status; Z91.013 Allergy to seafood
CPT/HCPCS: 93005 ×2; 93010 ×2; J1200; S0028; 96374; 96375; 99283

== ENCOUNTER 2019-12-06 14:19 | Observation (INO) | payer OTHER, MEDICARE ==
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
[2019-12-06] MEDS ORDERED: ACETAMINOPHEN 325 MG TABLET PO ONE (17:54)
[2019-12-06 18:30] LABS: ABSOLUTE BASOPHILS # (AUTO) 0.1 10^3/uL (0.0-0.2); ABSOLUTE EOSINOPHILS # (AUTO) 0.3 10^3/uL (0.0-0.6); ABSOLUTE MONOCYTES (AUTO) 0.7 10^3/uL (0.1-1.4); ABSOLUTE NEUT (AUTO) 5.2 10^3/uL (1.7-8.2); BASOPHILS % (AUTO) 1.3 % (0-2); EOSINOPHILS % (AUTO) 3.8 % (0-6); HEMOGLOBIN 12.9 g/dL (12.0-15.5); MEAN CORPUSCULAR HEMOGLOBIN 31.7 pg (27.0-33.4); MEAN CORPUSCULAR HGB CONC 34.9 g/dL (32.0-36.0); MEAN CORPUSCULAR VOLUME 91 fl (80-97); MONOCYTES % (AUTO) 8.9 % (3-13); PLATELET COUNT 314 10^3/uL (150-450); RED BLOOD COUNT 4.06 10^6/uL (3.72-5.28); TOTAL CELLS COUNTED % (AUTO) 100 %; WHITE BLOOD COUNT 8.4 10^3/uL (4.0-10.5)
[2019-12-06 18:37] LABS: INTERNATIONAL RATION (INR) 1.03; PROTHROMBIN TIME 13.5 SEC (11.4-15.4)
[2019-12-06 18:38] LABS: PARTIAL THROMBOPLASTIN TIME 27.8 SEC (23.5-35.8)
[2019-12-06 18:49] LABS: ALBUMIN 4.3 g/dL (3.5-5.0); ALKALINE PHOSPHATASE 92 U/L (38-126); ANION GAP 6 (5-19); ASPARTATE AMINO TRANSFERASE 24 U/L (14-36); BILIRUBIN,TOTAL 0.7 mg/dL (0.2-1.3); BLOOD UREA NITROGEN 21 mg/dL (7-20); CALCIUM 9.6 mg/dL (8.4-10.2); CARBON DIOXIDE 30 mmol/L (22-30); CHLORIDE 99 mmol/L (98-107); GLUCOSE 94 mg/dL (75-110); POTASSIUM 4.1 mmol/L (3.6-5.0); TOTAL PROTEIN 8.3 g/dL (6.3-8.2)
[2019-12-06] MEDS ORDERED: ACETAMINOPHEN 325 MG TABLET PO PRN (22:42)
[2019-12-06] MEDS ORDERED: GUAIFENESIN SYRP 200 MG/10 ML UDC PO PRN (22:42)
[2019-12-06] MEDS ORDERED: NITROGLYCERIN 0.4 MG/TAB 25 TAB/BOTTLE SL PRN (22:42)
[2019-12-06] MEDS ORDERED: MAGNESIUM HYDROXIDE SUSP 30 ML UDCUP PO PRN (22:42)
[2019-12-06] MEDS ORDERED: LORAZEPAM INJ 2 MG/1 ML VIAL IV PRN (22:42)
[2019-12-06] MEDS ORDERED: MELATONIN 5 MG TABLET PO PRN (22:42)
[2019-12-06] MEDS ORDERED: MAG HYDROX/AL HYDROX/SIMETH SUSP 30 ML UDCUP PO PRN (22:42)
[2019-12-06] MEDS ORDERED: HYDRALAZINE HCL INJ/PF 20 MG/1 ML SDV IV PRN (22:42)
[2019-12-06] MEDS: DIPHENHYDRAMINE HCL 25 MG CAPSULE PO SCH (22:54)
[2019-12-06] MEDS ORDERED: FAMOTIDINE 20 MG TABLET PO ONE (23:00)
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
[2019-12-07] MEDS: HEPARIN SOD (PORCINE) 5,000 UNIT/ML 1 ML VIAL SUBCUT SCH ×4 (05:47→22:23)
[2019-12-07] MEDS: DIPHENHYDRAMINE HCL 25 MG CAPSULE PO SCH ×4 (05:47→22:18)
[2019-12-07] MEDS ORDERED: LEVOTHYROXINE SODIUM 0.075 MG TABLET ONE (05:54)
[2019-12-07] MEDS: LEVOTHYROXINE SODIUM 0.075 MG TABLET PO SCH (06:06)
[2019-12-07 06:30] LABS: HEMATOCRIT 38.1 % (36.0-47.0); HEMOGLOBIN 13.1 g/dL (12.0-15.5); MEAN CORPUSCULAR HEMOGLOBIN 31.2 pg (27.0-33.4); MEAN CORPUSCULAR HGB CONC 34.4 g/dL (32.0-36.0); MEAN CORPUSCULAR VOLUME 91 fl (80-97); PLATELET COUNT 321 10^3/uL (150-450); RED CELL DISTRIBUTION WIDTH 12.8 % (11.5-14.0); WHITE BLOOD COUNT 5.9 10^3/uL (4.0-10.5)
[2019-12-07 07:02] LABS: ANION GAP 11 (5-19); BLOOD UREA NITROGEN 17 mg/dL (7-20); CALCIUM 9.5 mg/dL (8.4-10.2); CARBON DIOXIDE 25 mmol/L (22-30); CHLORIDE 99 mmol/L (98-107); GLUCOSE 105 mg/dL (75-110); POTASSIUM 3.8 mmol/L (3.6-5.0)
[2019-12-07] MEDS ORDERED: CLOPIDOGREL BISULFATE 75 MG TABLET PO SCH (10:00)
[2019-12-07] MEDS: FAMOTIDINE 20 MG TABLET PO SCH ×2 (10:03→22:18)
[2019-12-07] MEDS: ASPIRIN 81 MG TABLET, ENT COATED PO SCH (10:03)
[2019-12-07] MEDS ORDERED: (PENDING PHARMACY ID) (Amlodipine/Valsartan/Hcthiazid [Amlod-Valsa-Hctz 10-320-25 Mg] 1 TA PO SCH (10:15)
[2019-12-07 10:30] LABS: CHOLESTEROL 196.75 mg/dL (0-200); TRIGLYCERIDES 275 mg/dL (<150)
[2019-12-07 10:41] LABS: DIRECT LDL 84 mg/dL (<100)
--- NOTE | 2019-12-07 10:47 | RADIOLOGY REPORT (SQ) ---
EXAM DESCRIPTION: MRI HEAD WITHOUT IMAGES COMPLETED DATE/TIME: 12/07/2019 9:57 am REASON FOR STUDY: acute right facial numbness COMPARISON: CT of the head without contrast from 12/06/2019. TECHNIQUE: Multiplanar imaging includes non-contrasted T1, T2, FLAIR, and diffusion with ADC map seq uences. Images stored on PACS. LIMITATIONS: None. FINDINGS: The corpus callosum, sella turcica and craniocervical junction are normal in appearance. There is no restricted diffusion on the DWI. The areas of high T2/FLAIR signal in the right cerebell ar hemisphere and supratentorial periventricular and subcortical white matter are nonspecific and cou ld represent the sequela of chronic microvascular ischemia. There are foci of susceptibility artifact in the basal ganglia and supratentorial subcortical white m atter consistent with chronic hemosiderin deposition. There is no acute intracranial hemorrhage, vas cular territorial infarct, extra-axial fluid collection, mass effect or midline shift. The ortega-whit e matter differentiation is preserved. The caliber of the ventricles is concordant with the degree o f sulcation. There is no effacement of the cerebral sulci or basal subarachnoid cisterns. The intracranial vascular flow voids are preserved. The mucosal lining of the maxillary sinuses is thickened. There is no acute intra-orbital abnormalit y or calvarial marrow signal abnormality. IMPRESSION: No acute intracranial abnormality. EVIDENCE OF ACUTE STROKE: NO. TECHNICAL DOCUMENTATION: JOB ID: [id number] 2010 [employer]- All Rights Reserved Reading location - IP/workstation name: [email or web address]
[2019-12-07] MEDS: VITAMIN B COMPLEX TABLET PO SCH (10:51)
[2019-12-07] MEDS: ISOSORBIDE MONONITRATE 30 MG TAB.ER.24H PO SCH (10:52)
[2019-12-07] MEDS ORDERED: VALSARTAN 160 MG TABLET PO SCH (11:00)
[2019-12-07] MEDS ORDERED: AMLODIPINE BESYLATE 10 MG TABLET PO SCH (11:00)
[2019-12-07] MEDS ORDERED: HYDROCHLOROTHIAZIDE 25 MG TABLET PO SCH (11:00)
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
--- NOTE | 2019-12-08 00:25 | EKG REPORT ---
SEVERITY:- ABNORMAL ECG - SINUS RHYTHM INCOMPLETE LEFT BUNDLE BRANCH BLOCK : Confirmed by: Yaya Morrell 08-Dec-2019 00:24:51
--- NOTE | 2019-12-08 03:50 | RADIOLOGY REPORT (SQ) ---
EXAM DESCRIPTION: US CAROTID DOPPLER BILATERAL COMPLETED DATE/TME: 12/07/2019 07:51 Clinical History: CVA. Comparison: No prior studies are available for comparison. Technique: A carotid duplex ultrasonogram was performed by obtaining ortega-scale, color Doppler, and power Doppler images of the common, internal, and external carotid arteries bilaterally as well as the vertebral arteries. Findings: Duplex doppler sonogram of the common, internal, and external carotid arteries atherosclerotic plaque bilaterally. All measured velocities are within normal limits. The right internal carotid artery peak systolic velocity is 79 cm/sec. The left internal carotid artery peak systolic velocity is 117 cm/sec. Ratio of internal to common carotid artery peak systolic velocities are also normal and measure 1.7 on the left and 1.1 on the right. Both vertebral arteries demonstrate antegrade flow. There is an indeterminate 1.1 x 0.9 x 0.6 cm structure of the left carotid bifurcation is that does not have a normal appearance of a lymph node nor does it demonstrate significant vascularity. Impression: 1. Less than 50% stenosis of the internal carotid arteries by velocity criteria. 2. Antegrade flow in both vertebral arteries. 3. Indeterminate 1.1 cm structure in the left carotid bifurcation. CT of the neck soft tissues recommended for more complete characterization. Reference Table: Stenosis: 0-50% 50-69% >70% >95% Peak SV (cm/s): <125 125-230 >230 May be decreased ICA/CCA ratio: <2 >2-4 >4 Dampened CCA *Phil EG, Tavon CB, Tracey GL, et al. Carotid artery stenosis: ortega-scale and Doppler US diagnosisSociety of Radiologists in Ultrasound Consensus Conference. Radiology 2003; 229:340-346.
[2019-12-08] MEDS: LEVOTHYROXINE SODIUM 0.075 MG TABLET PO SCH (06:17)
[2019-12-08] MEDS: HEPARIN SOD (PORCINE) 5,000 UNIT/ML 1 ML VIAL SUBCUT SCH (06:18)
[2019-12-08] MEDS: DIPHENHYDRAMINE HCL 25 MG CAPSULE PO SCH ×2 (06:18→12:36)
[2019-12-08] MEDS: VITAMIN B COMPLEX TABLET PO SCH ×2 (12:35→13:18)
[2019-12-08] MEDS: ISOSORBIDE MONONITRATE 30 MG TAB.ER.24H PO SCH ×2 (12:35→13:18)
[2019-12-08] MEDS: HYDROCHLOROTHIAZIDE 25 MG TABLET PO SCH ×2 (12:36→13:18)
[2019-12-08] MEDS: ASPIRIN 81 MG TABLET, ENT COATED PO SCH (12:37)
[2019-12-08] MEDS: FAMOTIDINE 20 MG TABLET PO SCH ×2 (12:37→12:43)
[2019-12-08] MEDS: AMLODIPINE BESYLATE 10 MG TABLET PO SCH ×2 (12:39→13:18)
[2019-12-08] MEDS: VALSARTAN 160 MG TABLET PO SCH ×2 (12:40→13:17)
[2019-12-08 12:53] VITALS: BP 99/58
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
== END 2019-12-08 14:17 | disposition home or self-care (01) ==
LOC: ER 14:19 → INTOOBSV 21:00 → EH 21:00 → 4S 23:51
PROVIDERS: ADMIT Emergency Medicine; ATTEND Internal Medicine
DX: R20.0 Anesthesia of skin (principal); I10 Essential (primary) hypertension; E78.5 Hyperlipidemia, unspecified; E03.9 Hypothyroidism, unspecified; Z79.82 Long term (current) use of aspirin; V43.52XA Car driver injured in collision with other type car in traffic accident, initial encounter; H93.19 Tinnitus, unspecified ear; Z95.1 Presence of aortocoronary bypass graft; I25.10 Atherosclerotic heart disease of native coronary artery without angina pectoris; Z88.8 Allergy status to other drugs, medicaments and biological substances; Z86.718 Personal history of other venous thrombosis and embolism; I25.2 Old myocardial infarction; I73.9 Peripheral vascular disease, unspecified; Z86.711 Personal history of pulmonary embolism; G47.30 Sleep apnea, unspecified; J45.909 Unspecified asthma, uncomplicated; Z88.5 Allergy status to narcotic agent; Z88.1 Allergy status to other antibiotic agents; Z88.0 Allergy status to penicillin; Z79.899 Other long term (current) drug therapy
CPT/HCPCS: 99285; 36415 ×2; 83735; 84443; 85025; 85027; 85610; 85730; 80048; 80053; 84484; 84481; 80061; 93880; 70551; 70450; 72125; 93005; 93010; 97116; 97161; 92523; 97165; J1644 ×2; J3490 ×3